=== PATIENT | female | born 1975 | race Caucasian/White ===

== ENCOUNTER 2017-03-12 16:02 | Emergency (ER) | payer OTHER ==
[~2017-03-12] VITALS: Ht 157.5 cm; Wt 56.5 kg
[~2017-03-12 16:02] MED LIST: ALLERTEC PO; BUTA-177 PO; DIAZ10TA4 PO; DOXE10CA PO; EZET10TA3 PO; LEVO50TA5 PO; LIOTHYRONINE; MORPHINE PO; OXYC-229 PO; ZOLOFT PO
[2017-03-12 16:13] VITALS: BP 130/92
[2017-03-12] MEDS ORDERED: ASPIRIN 81 MG TABLET CHEW PO ONE (16:30)
[2017-03-12] MEDS ORDERED: PLEASE ENTER HEIGHT AND WEIGHT MC SCH (16:30)
[2017-03-12] MEDS ORDERED: MAALOX/HYOSCYAMINE/LIDOCAINE 45 ML BOTTLE ONE (16:54)
[2017-03-12] MEDS ORDERED: ASPIRIN 81 MG TABLET CHEW ONE (16:54)
[2017-03-12 17:00] LABS: BLOOD UREA NITROGEN 10 mg/dL (7-18)
[2017-03-12] MEDS ORDERED: MAALOX/HYOSCYAMINE/LIDOCAINE 45 ML BOTTLE PO ONE (17:00)
[2017-03-12 17:09] LABS: IS PT STATUS REG ER OR PRE ER? YES
== END 2017-03-12 18:09 | disposition home or self-care (01) ==
LOC: ED 18:07
DX: R07.89 Other chest pain (principal); Z90.710 Acquired absence of both cervix and uterus
CPT/HCPCS: 36415; 71010; 80048; 82040; 84484; 85025; 85379; 93005

== ENCOUNTER 2017-04-23 08:46 | Emergency (ER) | payer OTHER ==
[~2017-04-23] VITALS: Ht 157.5 cm; Wt 54.6 kg
[2017-04-23] MEDS ORDERED: SODIUM CHLORIDE 0.9% 1,000ML IVBOLUS ONE (09:30)
[2017-04-23] MEDS ORDERED: SODIUM CHLORIDE FLUSH 10ML SYR IVF ONE (09:30)
[2017-04-23 10:21] LABS: ASPARTATE AMINO TRANSFERASE 31 U/L (15-37); BLOOD UREA NITROGEN 6 mg/dL (7-18)
[2017-04-23] MEDS ORDERED: MORPHINE SULFATE 4 MG/ML, 1ML IVPush PRN (11:00)
[2017-04-23] MEDS ORDERED: ONDANSETRON 2MG/ML, 2ML IVPush ONE (11:00)
[2017-04-23] MEDS ORDERED: MORPHINE SULFATE 4 MG/ML, 1ML ONE (11:29)
[2017-04-23] MEDS ORDERED: ONDANSETRON 2MG/ML, 2ML ONE (11:29)
[2017-04-23] MEDS ORDERED: SODIUM CHLORIDE 0.9%, 500ML IVBOLUS ONE (11:30)
[2017-04-23 12:54] VITALS: BP 108/72
== END 2017-04-23 12:56 | disposition home or self-care (01) ==
LOC: ED 09:17
DX: N83.201 Unspecified ovarian cyst, right side (principal); Z90.710 Acquired absence of both cervix and uterus; Z88.0 Allergy status to penicillin
CPT/HCPCS: 36415; 76830; 80053; 81003; 83605; 85025; 96361; 96374; 96375; 99285; J2405; J7030; J7040

== ENCOUNTER 2017-04-24 12:35 | Emergency (ER) | payer OTHER ==
[~2017-04-24] VITALS: Ht 157.5 cm; Wt 55.1 kg
[2017-04-24 14:30] LABS: BLOOD UREA NITROGEN 5 mg/dL (7-18)
[2017-04-24] MEDS ORDERED: SODIUM CHLORIDE 0.9% 1,000ML IVBOLUS ONE (14:30)
[2017-04-24] MEDS ORDERED: SODIUM CHLORIDE FLUSH 10ML SYR IVF ONE (14:30)
[2017-04-24 14:34] LABS: ASPARTATE AMINO TRANSFERASE 24 U/L (15-37)
[2017-04-24] MEDS ORDERED: MORPHINE SULFATE 4 MG/ML, 1ML ONE (16:22)
[2017-04-24] MEDS ORDERED: MORPHINE SULFATE 4 MG/ML, 1ML IVPush PRN (16:30)
[2017-04-24] MEDS ORDERED: ONDANSETRON 2MG/ML, 2ML IVPush ONE (16:30)
[2017-04-24] MEDS ORDERED: OMNIPAQUE 350 MG/ML, 100ML BOTTLE ONE (16:56)
[2017-04-24 17:40] VITALS: BP 109/71
== END 2017-04-24 17:42 | disposition home or self-care (01) ==
LOC: ED 15:04
DX: N83.201 Unspecified ovarian cyst, right side (principal); R10.31 Right lower quadrant pain; R10.32 Left lower quadrant pain; Z90.710 Acquired absence of both cervix and uterus
CPT/HCPCS: 36415; 74177; 76830; 80053; 85025; 99285; Q9967